=== PATIENT | male | born 2005 | race African-American/Black ===

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

== ENCOUNTER 2025-01-04 00:06 | Day surgery (SDC) | payer OTHER, SELFPAY ==
[2024-12-27 13:58] VITALS: BMI 31.4
--- NOTE | 2024-12-27 14:00 | PC.NURSE ---
Report to the Outpatient Waiting Room, entrance under the green pavilion located off [facility], at time _0730_ on date _[id number]_. Planned Procedure Time: _0930_.? Time changes happen often and if your time is changed the preop area will call you the afternoon before. - You and your visitor will be asked to self-screen and do not enter if you have any COVID symptoms. Please call surgeon if you need to reschedule. - A mask is optional within the hospital at this time. Patients may have clear liquids (water, carbonated beverages, clear teas, apple juice) until 3 hours prior to surgery with a maximum of 20 ounces. - No food from midnight until time of surgery and no smoking, or chewing tobacco (or any form of nicotine). No chewing gum, candy or mints. Take only the following medications with a SIP of water on the morning of surgery: __Clonidine, Divalproex, Citalopram, Advair and Albuterol DO NOT STOP ANY OF YOUR OTHER PRESCRIPTION MEDICATIONS PRIOR TO SURGERY EXCEPT THE FOLLOWING Hold all vitamins and supplements for 3 days per anesthesiologist. Medications to discontinue per physician Date to take last dose Please no make-up, nail bengali, hairspray, perfume, deodorant, or body powder the day of surgery.? No jewelry (including any body piercings) or valuables the day of surgery, leave them at home.? Please take a shower or bath the night before, or the morning of, surgery with an antibacterial soap.? Wear comfortable, loose fitting clothing.? - Jewelry must be removed prior to entering the operating room.? Rings and piercings that are not removed may be cut off. - The hospital will not accept responsibility for valuables.? - Please leave all valuables, including medications, at home the day of surgery. If you are going home after surgery, a licensed ems driver must drive you home.? - NO public transportation without another adult if you receive anesthesia. - We recommend that an adult stay with you for 24 hours following discharge. - We also recommend that you do not drive, make important decision, drink alcoholic beverages, or take any drugs that were not prescribed by your health care provider for at least 24 hours after your discharge time. Follow any additional instructions given to you from your surgeon. Telephone instructions given to __Alissatflaco___and asked if any additional questions and then verbalized understanding. Patient advised to call surgeon office or pre surgery nurse liaison [phone] if any additional questions.
[2025-01-04] VITALS (7 sets, daily range): BP systolic 113–136; BP diastolic 59–106; PULSE 73–130; RESP 18–28; TEMP 36.4–36.6; O2SAT 93–100
--- NOTE | 2025-01-04 07:16 | P.HP_ITS ---
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 Social History Social History Living arrangements: nursing home Meds Home Medications and Allergies Home Medications ?Medication ?Instructions ?Recorded ?Confirmed ?Type albuterol sulfate 2.5 mg/3 mL 2.5 mg inhalation Q4H PRN 12/27/24 12/27/24 History (0.083 %) solution for nebulization shortness of breath or wheezing albuterol sulfate 90 mcg/actuation 2 puff inhalation Q4H 12/27/24 12/27/24 History aerosol inhaler citalopram 40 mg tablet 40 mg PO DAILY 12/27/24 12/27/24 History clonidine HCl 0.1 mg tablet 0.1 mg PO QID 12/27/24 12/27/24 History divalproex 250 mg tablet,delayed 250 mg PO QAM 12/27/24 12/27/24 History release divalproex 500 mg tablet,delayed 500 mg PO HS 12/27/24 12/27/24 History release epinephrine 0.15 mg/0.15 mL 0.15 mg IM DAILY PRN 12/27/24 12/27/24 History auto-injector (for 33 to 66 lb hypersensitivity reaction patients) fluticasone propionate 230 2 puff inhalation Q12H 12/27/24 12/27/24 History mcg-salmeterol 21 mcg/actuation HFA inhaler (Advair HFA) melatonin 3 mg tablet 3 mg PO HS 12/27/24 12/27/24 History midazolam 5 mg/spray (0.1 mL) 5 mg intranasal ONCE PRN seizures 12/27/24 12/27/24 History nasal spray (Nayzilam) montelukast 10 mg tablet 10 mg PO HS 12/27/24 12/27/24 History potassium chloride 20 mEq 20 meq PO DAILY 12/27/24 12/27/24 History tablet,extended release (K-Tab) zonisamide 100 mg capsule 100 mg PO DAILY 12/27/24 12/27/24 History (Zonegran) Allergies Allergy/AdvReac Type Severity Reaction Status Date / Time egg Allergy Unknown Unknown Verified 12/27/24 13:29 oak Allergy Unknown Unknown Verified 12/27/24 13:29 oats Allergy Unknown Unknown Verified 12/27/24 13:29 peanut Allergy Unknown Unknown Verified 12/27/24 13:29 pollen extracts Allergy Unknown Unknown Verified 12/27/24 13:44 wheat Allergy Unknown Unknown Verified 12/27/24 13:44 Assessment and Plan Assessment and plan (1) Non-restorable tooth: Code(s): K08.89 - Other specified disorders of teeth and supporting structures Status: Acute Plan exam under anesthesia and extractions as needed
--- NOTE | 2025-01-04 07:16 | WPDHPUPDATE1 ---
History and Physical Update Update Date/Time: 01/04/25 07:16 History and Physical has been reviewed, including an updated exam of the patient. There are NO changes in the patient's condition. Risks, benefits, and alternatives have been discussed and questions answered. Patient agrees to proceed with procedure.
[2025-01-04] MEDS: MIDAZOLAM HCL ORAL SYRUP (*CRX) 10 MG/5 ML UDC PO (08:34)
--- NOTE | 2025-01-04 08:36 | P.PNAN_ITS ---
Anes - Initial Pre Proc Eval Procedure: Operation Date: 01/04/25 09:30 Proposed Procedures p Exam and X-Ray Under Anesthesia, Extract Teeth as Needed - Reji Wild DMD Date/Time: 01/04/25 08:36 Surgeon: Reji Wild DMD Pre Op Diagnosis: dental caries Patient Data Age: 19 Gender: M Height: 1.7 m Weight: 90.9 kg Allergies Allergy/AdvReac Type Severity Reaction Status Date / Time egg Allergy Unknown Unknown Verified 01/04/25 08:29 oak Allergy Unknown Unknown Verified 01/04/25 08:29 oats Allergy Unknown Unknown Verified 01/04/25 08:29 peanut Allergy Unknown Unknown Verified 01/04/25 08:29 pollen extracts Allergy Unknown Unknown Verified 01/04/25 08:29 wheat Allergy Unknown Unknown Verified 01/04/25 08:29 Home Medications ?Medication ?Instructions ?Recorded ?Confirmed ?Type albuterol sulfate 2.5 mg/3 mL 2.5 mg inhalation Q4H PRN 12/27/24 01/04/25 History (0.083 %) solution for nebulization shortness of breath or wheezing albuterol sulfate 90 mcg/actuation 2 puff inhalation Q4H 12/27/24 01/04/25 History aerosol inhaler citalopram 40 mg tablet 40 mg PO DAILY 12/27/24 01/04/25 History clonidine HCl 0.1 mg tablet 0.1 mg PO QID 12/27/24 01/04/25 History divalproex 250 mg tablet,delayed 250 mg PO QAM 12/27/24 01/04/25 History release divalproex 500 mg tablet,delayed 500 mg PO HS 12/27/24 01/04/25 History release epinephrine 0.15 mg/0.15 mL 0.15 mg IM DAILY PRN 12/27/24 12/27/24 History auto-injector (for 33 to 66 lb hypersensitivity reaction patients) fluticasone propionate 230 2 puff inhalation Q12H 12/27/24 01/04/25 History mcg-salmeterol 21 mcg/actuation HFA inhaler (Advair HFA) melatonin 3 mg tablet 3 mg PO HS 12/27/24 01/04/25 History midazolam 5 mg/spray (0.1 mL) 5 mg intranasal ONCE PRN seizures 12/27/24 12/27/24 History nasal spray (Nayzilam) montelukast 10 mg tablet 10 mg PO HS 12/27/24 01/04/25 History potassium chloride 20 mEq 20 meq PO DAILY 12/27/24 01/04/25 History tablet,extended release (K-Tab) zonisamide 100 mg capsule 100 mg PO DAILY 12/27/24 01/04/25 History (Zonegran) Patient hx anesthesia problems: none Family hx anesthesia problems: none Results Review: All pre-operative results and documents have been reviewed as part of the pre- operative evaluation. 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 Informed Consent: The patient's anesthetic plan and its attendant risks and benefits were discussed with the patient/family/POA. Questions were solicited and answers provided to the satisfaction of the patient/family/POA.
--- NOTE | 2025-01-04 08:43 | SUR.PREOP ---
Per Dr. Jack no need for divalproex drug level. Okay to start IV in OR.
[2025-01-04] MEDS: LIDOCAINE 2%-EPI (FOR DENTAL BLOCK) 1.7 ML CARTRIDGE 5 ML INFILTRATE (10:22)
--- NOTE | 2025-01-04 10:24 | W.PM.PROC2 ---
Procedure Note - Detailed Date of Procedure 01/04/25 Pre-op Diagnosis dental caries Post-op Diagnosis Same Procedure Performed removal 4, 9s, 12, 13s, 28 and 30 Surgeon Reji Wild, AALIYAH Anesthesia General Findings no unusual Description of Procedure Patient encountered in the operating room under the care of the Anesthesia Service who induced general anesthetic. Radiographs taken and evaluated oral cavity suctioned free of debris and throat pack placed. Local anesthetic administered. Tooth 4. 9 S and 13 S were extracted routinely sockets curative free of debris and irrigated copious month sterile saline. An incision was made in the area of teeth numbers 04/05/2029 in 30 in the full-thickness flap was elevated the buckle. Tooth number 30 was suctioned and removed using a ring forceps technique without complication tooth number 28 was then removed with elevator and forceps technique as well 2nd secured free of debris and irrigated copiously with sterile saline. A 15 blade was used to make an incision area of numbers 12 and 13 S which were followed palatally positioned in a full-thickness flap was elevated the palate and teeth numbers 12 and 13 S were extracted using elevator and forceps technique without complication. Socket curetted free of debris and irrigated with copious amounts of sterile saline in tissues reapproximated using 4-0 chromic gut suture oral cavity suctioned free of debris and throat packed removed. Care of the patient returned to the anesthesia service.
[2025-01-04] MEDS: LACTATED RINGERS 1,000 ML 30 ML IV CONT (10:28)
== END 2025-01-04 11:48 | disposition home or self-care (01) ==
PROVIDERS: PCP Pediatrics; Visit Provider Dentist
PROC: (CPT 41899; principal; 2025-01-04 09:30)
DX: K08.89 Other specified disorders of teeth and supporting structures (principal); R15.9 Full incontinence of feces; R32 Unspecified urinary incontinence; J45.901 Unspecified asthma with (acute) exacerbation; Q99.8 Other specified chromosome abnormalities; Z79.51 Long term (current) use of inhaled steroids
CPT/HCPCS: 41899 ×6; 70300; A9270; J0330; J1100; J2405; J2704; J3010; J7120